=== PATIENT | male | born 1980 | race Caucasian/White ===

== ENCOUNTER 2017-12-14 02:14 | Emergency (ER) | payer OTHER ==
[~2017-12-14] VITALS: Ht 190.5 cm; Wt 87.8 kg
[2017-12-14 02:16] VITALS: BP 131/78
== END 2017-12-14 05:17 | disposition home or self-care (01) ==
LOC: ED 05:11
DX: G89.11 Acute pain due to trauma (principal); M25.552 Pain in left hip; X58.XXXA Exposure to other specified factors, initial encounter; Y93.89 Activity, other specified; Y92.89 Other specified places as the place of occurrence of the external cause; Y99.0 Civilian activity done for income or pay
CPT/HCPCS: 99284